=== PATIENT | female | born 1995 | race Caucasian/White ===

== ENCOUNTER 2017-01-24 09:27 | Emergency (ER) | payer OTHER ==
[~2017-01-24] VITALS: Ht 160 cm; Wt 65.8 kg
[2017-01-24] MEDS ORDERED: KETOROLAC TROMETHAMINE 30 MG INJ IM ONE (10:15)
[2017-01-24] MEDS ORDERED: KETOROLAC TROMETHAMINE 30 MG INJ ONE (10:32)
--- NOTE | 2017-01-24 12:35 | NUR ---
Patient discharged to home in stable conditon. Written and verbal after care instructions given. Patient verbalizes understanding of instructions.PT WALKS IN STEADY GAIT, NECK PAIN HAS SUBSIDED.PT ACCOMPANIED BY MOTHER AND UNCLE.
[2017-01-24 12:44] VITALS: BP 109/59
== END 2017-01-24 12:30 | disposition home or self-care (01) ==
LOC: ER 09:27
DX: S13.4XXA Sprain of ligaments of cervical spine, initial encounter (principal); V49.9XXA Car occupant (driver) (passenger) injured in unspecified traffic accident, initial encounter; Y93.89 Activity, other specified; Y92.89 Other specified places as the place of occurrence of the external cause; Y99.8 Other external cause status
CPT/HCPCS: 72040; 72125; 96372; 99284; A4663; J1885